=== PATIENT | female | born 1940 | race Caucasian/White ===

== ENCOUNTER 2023-07-02 14:04 | Emergency (ER) | payer MEDICARE ==
[2023-07-02 14:49] VITALS: TEMP 97.7
[2023-07-02] MEDS ORDERED: Zofran 4 MG/2 ML VIAL ONE (15:07)
[2023-07-02] MEDS ORDERED: Sodium Chloride 0.9% 1000 ML 1,000 ML ONE (15:07)
[2023-07-02 15:09] VITALS: O2SAT 94
[2023-07-02] MEDS: Sodium Chloride 0.9% 1000 ML 1,000 ML IV STA (15:09)
[2023-07-02] MEDS: Zofran 4 MG/2 ML VIAL IV ONE (15:13)
[2023-07-02 15:14] LABS: BASOPHIL % 0.4 % (0.0-0.4); Basophil (Absolute #) 0.04 x10^3/uL (0-0.4); Hemoglobin 13.2 g/dL (12.0-16.0); IMMATURE GRAN # 0.02 x10^3u/L (0.00-0.03); IMMATURE GRAN % 0.2 % (0.00-0.4); Lymphocyte (Absolute #) 2.36 x10^3/uL (1.0-4.6); Lymphocytes % 23.5 % (24.0-44.0); Mean Cell Volume 97.2 fL (78-100); Mean Corpuscular Hemoglobin 30.6 pg (26-32); Mean Corpuscular Hgb Concent. 31.4 g/dL (32-36); Mean Platelet Volume 9.8 fL (7.5-11.0); Monocyte (Absolute #) 0.94 x10^3/uL (0.0-1.3); Monocytes % 9.3 % (0.0-12.0); Neutrophil % 64.6 % (36.0-66.0); Platelet Count 279 x10^3/uL (150-450); Red Blood Count 4.32 x10^6/uL (4.1-5.4); Red Cell Distribution Width 13.3 % (11.5-14.0); White Blood Count 10.1 x10^3/uL (4.0-10.5)
[2023-07-02 15:34] LABS: ALBUMIN 4.2 g/dL (3.5-5.0); ALKALINE PHOSPHATASE 99 U/L (38-126); AMYLASE 106 U/L (30-110); ANION GAP 14.7 MEQ/L (5-15); BLOOD UREA NITROGEN 32 mg/dL (7-17); CHLORIDE 108 mmol/L (98-107); Calcium 9.4 mg/dL (8.4-10.2); Creatinine 1 1.23 mg/dL (0.52-1.04); EST GLOMERULAR FILTRATION RATE 43.1 ML/MIN; Glucose 107 mg/dL (74-106); LIPASE 100 U/L (23-300); Potassium 4.5 mmol/L (3.5-5.1); SGOT/AST 27 U/L (14-36); SGPT/ALT 18 U/L (0-35); SODIUM 135 mmol/L (137-145); TROPONIN < 0.012 ng/mL (0.000-0.034); Total Protein 7.5 g/dL (6.3-8.2)
[2023-07-02 15:35] VITALS: PULSE 66
[2023-07-02 15:35] LABS: Carbon Dioxide 16 mmol/L (22-30)
[2023-07-02 15:48] LABS: INFLUENZA A NEGATIVE (NEGATIVE); INFLUENZA B NEGATIVE (NEGATIVE); RESPIRATORY SYNCTIAL VIRUS NEGATIVE (NEGATIVE); SARS-CoV-2 Xpert Express NEGATIVE (NEGATIVE)
--- NOTE | 2023-07-02 16:27 | XRAY ---
Indication: Vomiting. Comparison: June 25, 2019 Portable chest demonstrates interval enlarging very large hiatal hernia again with intrathoracic stomach. Remaining heart and lungs unremarkable. Bony thorax intact again with osteopenia and mild degenerative changes.
[2023-07-02 16:30] LABS: Appearance Clear (Clear); Bacteria None Seen /HPF (None Seen); Bilirubin Negative (Negative); Blood Negative (Negative); Epithelial Cells Rare /HPF (None Seen); Glucose, Urine Negative (Negative); Ketones Negative (Negative); Leukocyte Esterase Small (Negative); Nitrite Negative (Negative); Protein,Urine Dip Negative (Negative); RBC 0-2 /HPF (0-5); Specific Gravity 1.025 (1.005-1.030); Urobilinogen 0.2 mg/dL (0.2)
[2023-07-02 16:35] LABS: ADD URINE CULTURE? YES (NO)
--- NOTE | 2023-07-02 17:04 | ERPHSYRPT ---
- History of Present Illness Time Seen by Provider: 07/02/23 14:31 Source: patient Exam Limitations: no limitations Patient Subjective Stated Complaint: C/O diarrhea X 3 days Triage Nursing Assessment: Patient is alert and oriented. No SOB. She is pale. PRESSLEY WNL. Denies current pain. Denies vomiting but does have some nausea. Physician History: Patient is here with diarrhea, vomiting. Has been going on for 3 days. Patient recently finished a course of Bactrim for UTI. No falls or trauma. Of note when patient was hooked up to the monitor she appears to be in supraventricular bigeminy. Patient states that she does have a known history of cardiac issues, CHF, does not want to be further evaluated for this today. She has no falls no other trauma. Otherwise feels it is in her normal state of health. She is not taken any home COVID tests. She has not tried anything [id number] to make her feel better she is here with her adult daughter who is also helping provide care. Allergies/Adverse Reactions: shellfish derived Allergy (Severe, Verified 07/02/23 14:26) Swelling of Tongue and Lips levofloxacin [From Levaquin] Allergy (Intermediate, Verified 07/02/23 14:26) Rash Home Medications: Aspirin [Aspirin EC] 81 mg PO DAILY 07/04/19 [History] Carvedilol [Coreg 6.25 MG] 6.25 mg PO BID 07/04/19 [History] Memantine HCl 5 mg [Namenda 5 MG] 5 mg PO BID 07/04/19 [History] Nitroglycerin 0.4 mg Tablet [Nitrostat 0.4 MG Tablet] 0.4 mg SL UD 07/04/19 [History] Rosuvastatin Calcium [Crestor] 10 mg PO DAILY 07/04/19 [History] Anastrozole 1 tab PO DAILY 07/02/23 [History] Olmesartan Medoxomil 20 mg [Benicar 20 MG] 1 tab PO DAILY 07/02/23 [History] PANTOPRAZOLE 40 mg Tablet [Protonix 40MG Tablet] 1 tab PO DAILY 07/02/23 [History] Hx Tetanus, Diphtheria Vaccination/Date Given: Yes Hx Influenza Vaccination/Date Given: Yes Hx Pneumococcal Vaccination/Date Given: Yes Immunizations Up to Date: Yes Travel Risk - International Travel Have you traveled outside of the country in past 3 weeks: No - Coronavirus Screening Are you exhibiting any of the following symptoms?: Yes Symptoms: Vomiting/Diarrhea Close contact with a COVID-19 positive Pt in past 14-21 Days: No - Vaccine Status Have you recieved a Covid-19 vaccination: Yes [employer] Ter[employer]: Moderna - Vaccination Dates Date of 2cond Vaccination (if applicable): 07/17/20 - Past Medical History Pertinent Past Medical History: Yes Neurological History: No Pertinent History ENT History: Glaucoma Cardiac History: Arrhythmia, Congestive Heart Failure, Coronary Artery Disease, High Cholesterol Respiratory History: Asthma Endocrine Medical History: Diabetes Type II Musculoskeletal History: Arthritis GI Medical History: GERD, Gallbladder Disease, Hernia, Ulcer History: No Pertinent History Psycho-Social History: No Pertinent History Female Reproductive Disorders: Breast Cancer Other Medical History: leaky heart valve, 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 Lyn - Past Surgical History Past Surgical History: Yes Cardiac: Cardiac Catheterization, Cardiac Stent Respiratory: No Pertinent History Gastrointestinal: Cholecystectomy Genitourinary: No Pertinent History Musculoskeletal: Other Female Surgical History: Hysterectomy, Mastectomy Other Surgical History: ankle surgery, glaucoma and cataract surgeries, partial right breast mastectomy - Social History Smoking Status: Never smoker Exposure to second hand smoke: No Drug Use: none Patient Lives Alone: Yes - Nursing Vital Signs Nursing Vital Signs: Initial Vital Signs Temperature 97.7 F 07/02/23 14:27 Pulse Rate 74 07/02/23 14:27 Respiratory Rate 20 07/02/23 14:27 Blood Pressure 145/76 07/02/23 14:27 O2 Sat by Pulse Oximetry 95 07/02/23 14:27 Pain Scale Pain Intensity 0 - Physical Exam SpO2: 94 Comments: 07/02/23 18:48 Review of Systems Constitutional: Negative for fever. HENT: Negative for congestion. Respiratory: Negative for shortness of breath. Cardiovascular: Negative for chest pain. Gastrointestinal: Negative for abdominal pain. Nausea, vomiting, diarrhea Genitourinary: Negative for dysuria. Musculoskeletal: Negative for back pain. Skin: Negative for rash. Neurological: Negative for headaches. Psychiatric/Behavioral: Negative for behavioral problems. All other systems reviewed and are negative. Physical Exam Vitals signs and nursing note reviewed. Constitutional: Appearance: Patient is well-developed. HENT: Head: Normocephalic and atraumatic. Eyes: Conjunctiva/sclera: Conjunctivae normal. Neck: Trachea: No tracheal deviation. Cardiovascular: Rate and Rhythm: Normal rate. Pulmonary: Effort: Pulmonary effort is normal. No respiratory distress. Abdominal: Palpations: Abdomen is soft. Musculoskeletal: General: No deformity. Skin: General: Skin is warm and dry. Neurological: Mental Status: Patient is alert and oriented to person, place, and time, behavior normal. Ordered Tests: Active Orders 24 hr Category Date Time Status EKG-ER Only STAT Care 07/02/23 14:45 Completed IV Insertion STAT Care 07/02/23 14:45 Completed CHEST 1 VIEW (PORTABLE) Stat Exams 07/02/23 14:45 Completed AMYLASE Stat Lab 07/02/23 15:00 Completed CBC W DIFF Stat Lab 07/02/23 15:00 Completed CMP Stat Lab 07/02/23 15:00 Completed CULTURE,URINE Stat Lab 07/02/23 Ordered CULTURE,URINE Stat Lab 07/02/23 16:10 Received LIPASE Stat Lab 07/02/23 15:00 Completed TROPONIN Q4H Lab 07/02/23 15:00 Completed UA W/RFX UR CULTURE Stat Lab 07/02/23 16:10 Completed Medication Summary Discontinued Medications Generic Name Dose Route Start Last Admin Trade Name Freq PRN Reason Stop Dose Admin Sodium Chloride 1,000 mls @ 500 mls/hr 07/02/23 14:45 07/02/23 15:09 Sodium Chloride 0.9% 1000 Ml IV 07/02/23 16:44 500 mls/hr .Q2H STA Administration Sodium Chloride Confirm 07/02/23 15:07 Sodium Chloride 0.9% 1000 Ml Administered 07/02/23 15:08 Dose 1,000 mls @ ud .ROUTE .STK-MED ONE Ondansetron HCl 4 mg 07/02/23 14:45 07/02/23 15:13 Ondansetron Hcl 4 Mg/2 Ml Vial IV 07/02/23 14:46 4 mg STAT ONE Administration Ondansetron HCl Confirm 07/02/23 15:07 Ondansetron Hcl 4 Mg/2 Ml Vial Administered 07/02/23 15:08 Dose 4 mg .ROUTE .STK-MED ONE Lab/Rad Data: Laboratory Result Diagrams 07/02/23 15:00 07/02/23 15:00 Laboratory Results 07/02/23 07/02/23 07/02/23 Range/Units 16:10 15:00 15:00 WBC (4.0-10.5) x10^3/uL RBC (4.1-5.4) x10^6/uL Hgb (12.0-16.0) g/dL Hct (35-47) % MCV (78-100) fL MCH (26-32) pg MCHC (32-36) g/dL RDW (11.5-14.0) % Plt Count (150-450) x10^3/uL MPV (7.5-11.0) fL Gran % (36.0-66.0) % Immature Gran % (Auto) (0.00-0.4) % Nucleat RBC Rel Count (0.00-0.1) % Eos # (Auto) (0-0.5) x10^3/uL Immature Gran # (Auto) (0.00-0.03) x10^3u/L Absolute Lymphs (auto) (1.0-4.6) x10^3/uL Absolute Monos (auto) (0.0-1.3) x10^3/uL Absolute Nucleated RBC (0.00-0.01) x10^3u/L Lymphocytes % (24.0-44.0) % Monocytes % (0.0-12.0) % Eosinophils % (0.00-5.0) % Basophils % (0.0-0.4) % Absolute Granulocytes (1.4-6.9) x10^3/uL Basophils # (0-0.4) x10^3/uL Sodium 135 L (137-145) mmol/L Potassium 4.5 (3.5-5.1) mmol/L Chloride 108 H (98-107) mmol/L Carbon Dioxide 16 L* (22-30) mmol/L Anion Gap 14.7 (5-15) MEQ/L BUN 32 H (7-17) mg/dL Creatinine 1.23 H (0.52-1.04) mg/dL Estimated GFR 43.1 ML/MIN Glucose 107 H (74-106) mg/dL Calcium 9.4 (8.4-10.2) mg/dL Total Bilirubin 0.50 (0.2-1.3) mg/dL AST 27 (14-36) U/L ALT 18 (0-35) U/L Alkaline Phosphatase 99 (38-126) U/L Troponin I < 0.012 (0.000-0.034) ng/mL Serum Total Protein 7.5 (6.3-8.2) g/dL Albumin 4.2 (3.5-5.0) g/dL Amylase 106 (30-110) U/L Lipase 100 (23-300) U/L Urine Color Yellow (Yellow) Urine Appearance Clear (Clear) Urine pH 5.0 (4.6-8.0) Ur Specific [place] 1.025 (1.005-1.030) Urine Protein Negative (Negative) Urine Glucose (UA) Negative (Negative) mg/dL Urine Ketones Negative (Negative) Urine Blood Negative (Negative) Urine Nitrite Negative (Negative) Urine Bilirubin Negative (Negative) Urine Urobilinogen 0.2 (0.2) mg/dL Ur Leukocyte Esterase Small A (Negative) U Hyaline Cast (Auto) 3-5 A (0-2) /LPF Urine Microscopic RBC 0-2 (0-5) /HPF Urine Microscopic WBC 11-20 A (0-5) /HPF Ur Epithelial Cells Rare (None Seen) /HPF Urine Bacteria None Seen (None Seen) /HPF Urine Culture Reflexed YES (NO) Influenza Type A Ag NEGATIVE (NEGATIVE) Influenza Type B Ag NEGATIVE (NEGATIVE) RSV (PCR) NEGATIVE (NEGATIVE) SARS-CoV-2 (PCR) NEGATIVE (NEGATIVE) 07/02/23 Range/Units 15:00 WBC 10.1 (4.0-10.5) x10^3/uL RBC 4.32 (4.1-5.4) x10^6/uL Hgb 13.2 (12.0-16.0) g/dL Hct 42.0 (35-47) % MCV 97.2 (78-100) fL MCH 30.6 (26-32) pg MCHC 31.4 L (32-36) g/dL RDW 13.3 (11.5-14.0) % Plt Count 279 (150-450) x10^3/uL MPV 9.8 (7.5-11.0) fL Gran % 64.6 (36.0-66.0) % Immature Gran % (Auto) 0.2 (0.00-0.4) % Nucleat RBC Rel Count 0.0 (0.00-0.1) % Eos # (Auto) 0.20 (0-0.5) x10^3/uL Immature Gran # (Auto) 0.02 (0.00-0.03) x10^3u/L Absolute Lymphs (auto) 2.36 (1.0-4.6) x10^3/uL Absolute Monos (auto) 0.94 (0.0-1.3) x10^3/uL Absolute Nucleated RBC 0.00 (0.00-0.01) x10^3u/L Lymphocytes % 23.5 L (24.0-44.0) % Monocytes % 9.3 (0.0-12.0) % Eosinophils % 2.0 (0.00-5.0) % Basophils % 0.4 (0.0-0.4) % Absolute Granulocytes 6.50 (1.4-6.9) x10^3/uL Basophils # 0.04 (0-0.4) x10^3/uL Sodium (137-145) mmol/L Potassium (3.5-5.1) mmol/L Chloride (98-107) mmol/L Carbon Dioxide (22-30) mmol/L Anion Gap (5-15) MEQ/L BUN (7-17) mg/dL Creatinine (0.52-1.04) mg/dL Estimated GFR ML/MIN Glucose (74-106) mg/dL Calcium (8.4-10.2) mg/dL Total Bilirubin (0.2-1.3) mg/dL AST (14-36) U/L ALT (0-35) U/L Alkaline Phosphatase (38-126) U/L Troponin I (0.000-0.034) ng/mL Serum Total Protein (6.3-8.2) g/dL Albumin (3.5-5.0) g/dL Amylase (30-110) U/L Lipase (23-300) U/L Urine Color (Yellow) Urine Appearance (Clear) Urine pH (4.6-8.0) Ur Specific [place] (1.005-1.030) Urine Protein (Negative) Urine Glucose (UA) (Negative) mg/dL Urine Ketones (Negative) Urine Blood (Negative) Urine Nitrite (Negative) Urine Bilirubin (Negative) Urine Urobilinogen (0.2) mg/dL Ur Leukocyte Esterase (Negative) U Hyaline Cast (Auto) (0-2) /LPF Urine Microscopic RBC (0-5) /HPF Urine Microscopic WBC (0-5) /HPF Ur Epithelial Cells (None Seen) /HPF Urine Bacteria (None Seen) /HPF Urine Culture Reflexed (NO) Influenza Type A Ag (NEGATIVE) Influenza Type B Ag (NEGATIVE) RSV (PCR) (NEGATIVE) SARS-CoV-2 (PCR) (NEGATIVE) - Progress Progress: improved Progress Note: 07/02/23 18:49 Differential diagnosis includes: PNA, STEMI, NSTEMI, other infection, musculoskeletal pain, pneumothorax - We'll obtain basic labs, fluids, EKG, troponin, chest x-ray - RSV/Flu/Covid, UA to ensure that UTI is cleared, Zofran. - EKG shows no ST changes-supraventricular bigeminy- my read - O2 saturations consistently greater than 95%. - CXR shows no pneumonia, pneumothorax - my read Reevaluation: Patient does have a low bicarb, other electrolyte abnormalities, slight TOM. Most likely is from vomiting, fluid loss. Patient given 500 mL of fluid given her history of CHF. She feels much improved with Zofran, fluids. I did ask her if she would like to stay for further observation with her TOM and other electrolyte abnormalities. Patient states that she is now able to take p.o. She feels that she can continue to self hydrate at home. May need to return here sooner should she get worse. Patient's COVID, flu, RSV was negative. Patient continued to be in bigeminy with no other acute changes on the bus monitor. Chest x-ray demonstrated large hiatal hernia. Patient states that she does have a known history of this. I did again offer further workup, follow- up, other interventions for these issues, chronic medical problems, TOM. Patient ultimately did decline these. She states that she would just like to feel better and go home. I did discuss all this with the patient's adult daughter. They feel comfortable with the plan. Will follow-up with Dr. Otero for repeat BMP in 24 to 40 hours. Return here sooner for new or changing symptoms. Counseled pt/family regarding: lab results, diagnosis, rad results - Departure Departure Disposition: Home Clinical Impression: Vomiting and diarrhea, Elevated serum creatinine, Supraventricular bigeminy Condition: Stable Critical Care Time: No Referrals: WOLF OTERO MD [Primary Care Provider] - Follow up/PCP as directed Instructions: Nausea and Vomiting, Adult (DC) Prescriptions: Ondansetron ODT 4 MG [Zofran Odt 4 mg] 4 mg PO Q6H PRN PRN #10 tablet PRN Reason: Vomiting
[2023-07-02 17:09] VITALS: BP 153/75; RESP 22
== END 2023-07-02 17:14 | disposition home or self-care (01) ==
LOC: ED 14:04
DX: R19.7 Diarrhea, unspecified (principal); R11.2 Nausea with vomiting, unspecified; R79.89 Other specified abnormal findings of blood chemistry; R00.8 Other abnormalities of heart beat; I50.9 Heart failure, unspecified; E78.5 Hyperlipidemia, unspecified; E11.9 Type 2 diabetes mellitus without complications; Z79.899 Other long term (current) drug therapy; Z20.828 Contact with and (suspected) exposure to other viral communicable diseases
CPT/HCPCS: 0241U; 36000; 36415; 71045; 80053; 81001; 82150; 83690; 84484; 85025; 87086; 93005; 96374; 99284; J2405